=== PATIENT | female | born 1995 | race Two or more races ===

== ENCOUNTER 2021-09-18 17:50 | Emergency (ER) | payer OTHER ==
[2021-09-18 18:24] VITALS: BP 108/63; PULSE 73; RESP 16; TEMP 98.9; BMI 32.5
[2021-09-18] MEDS ORDERED: SODIUM CHLORIDE 1,000 ML IV STA (20:06)
[2021-09-18] MEDS ORDERED: ACETAMINOPHEN 1000 MG/100 ML BAG IVPB ONE (20:06)
[2021-09-18] MEDS ORDERED: ACETAMINOPHEN INJECTION 100 ML IVPB ONE (20:40)
[2021-09-18 21:08] LABS: HCG,QUALITATIVE URINE Positive; URINE APPEARANCE CLEAR; URINE BILIRUBIN NEGATIVE (NEGATIVE); URINE COLOR YELLOW; URINE GLUCOSE (UA) NEGATIVE (NEGATIVE); URINE KETONE NEGATIVE (NEGATIVE); URINE LEUK ESTERASE NEGATIVE (NEGATIVE); URINE NITRITE NEGATIVE (NEGATIVE); URINE PROTEIN NEGATIVE (NEGATIVE); URINE UROBILINOGEN 0.2 mg/dL (0.2-1.0)
[2021-09-18 21:35] LABS: BASO % 0.3 % (0-2.0); HEMATOCRIT 37.8 % (32.4-45.2); HEMOGLOBIN 12.3 GM/dL (10.7-15.3); LYMPH % 35.6 % (8-40); MCH 28.4 pg (25.7-33.7); MCHC 32.5 g/dl (32.0-36.0); MEAN CELL VOLUME 87.5 fl (80-96); MEAN PLT VOLUME 10.1 fl (7.5-11.1); NEUT % 57.1 % (42.8-82.8); PLATELET COUNT 250 10^3/uL (134-434); RBC 4.32 M/mm3 (3.60-5.2); RDW 13.3 % (11.6-15.6); WHITE BLOOD COUNT 10.9 K/mm3 (4.0-10.0)
[2021-09-18 21:55] LABS: ALBUMIN 3.7 g/dl (3.4-5.0); CALCIUM 9.4 mg/dL (8.5-10.1)
[2021-09-18 22:00] LABS: BILIRUBIN,TOTAL 0.5 mg/dL (0.2-1); CREATININE 0.7 mg/dL (0.55-1.3); TOT PROT 7.8 g/dl (6.4-8.2)
== END 2021-09-18 23:25 | disposition home or self-care (01) ==
LOC: JER 17:50
PROC: 3E033GC Introduction of Other Therapeutic Substance into Peripheral Vein, Percutaneous Approach (ICD-10-PCS; principal; 2021-09-18)
DX: R10.84 Generalized abdominal pain (principal)
CPT/HCPCS: 36415; 76817-TC; 80053; 81003; 84702; 84703; 85025; 86850; 86900; 86901; 87086; 99284-25

== ENCOUNTER 2022-05-10 07:15 | Inpatient (IN) | payer OTHER ==
[2022-05-10] MEDS: ELECTROLYTE-148 SOLN 1,000 ML IV SCH ×2 (09:00→12:30)
[2022-05-10 09:58] VITALS: BMI 39.9
[2022-05-10 11:05] LABS: BASO % 0.3 % (0-2.0); EOS % 0.3 % (0-4.5); HEMATOCRIT 35.4 % (32.4-45.2); HEMOGLOBIN 11.9 GM/dL (10.7-15.3); LYMPH % 14.1 % (8-40); MCH 29.4 pg (25.7-33.7); MCHC 33.6 g/dl (32.0-36.0); MEAN CELL VOLUME 87.5 fl (80-96); MEAN PLT VOLUME 10.2 fl (7.5-11.1); MONO % 4.9 % (3.8-10.2); NEUT % 80.4 % (42.8-82.8); PLATELET COUNT 203 10^3/uL (134-434); RBC 4.05 M/mm3 (3.60-5.2); RDW 14.1 % (11.6-15.6); WHITE BLOOD COUNT 12.6 K/mm3 (4.0-10.0)
[2022-05-10 11:26] LABS: CALCIUM 8.9 mg/dL (8.5-10.1)
[2022-05-10 11:27] LABS: BLOOD UREA NITROGEN 7.4 mg/dL (7-18)
[2022-05-10 11:30] LABS: CREATININE 0.5 mg/dL (0.55-1.3)
[2022-05-10 11:31] LABS: INR 0.95 (0.83-1.09)
[2022-05-10 11:33] LABS: ACTIVATED PTT 28.9 SECONDS (25.2-36.5)
[2022-05-10] MEDS ORDERED: FENTANYL/BUPIVACAINE/NS/PF - PCEA - 50 ML DISP.SYRIN EP ONE (11:43)
[2022-05-10] MEDS ORDERED: NALOXONE HCL 0.4 MG/ML VIAL IVPUSH PRN (11:46)
[2022-05-10] MEDS ORDERED: FENTANYL CITRATE/PF 50 MCG/ML VIAL ONE ×4 (11:51→16:57)
[2022-05-10] MEDS ORDERED: FENTANYL/BUPIVACAINE/NS/PF - PCEA - 50 ML DISP.SYRIN EP SCH (12:00)
[2022-05-10] MEDS ORDERED: OXYTOCIN 20 UNITS in 0.9% NS 20 UNIT/1,000 ML INFUS.BAG IV ONE ×2 (16:15→19:26)
[2022-05-10] MEDS ORDERED: ceFAZolin SODIUM 1 GM VIAL ONE (16:23)
[2022-05-10] MEDS ORDERED: KETAMINE HCL 500 MG/10 ML VIAL ONE (16:28)
[2022-05-10] MEDS ORDERED: SODIUM CHLORIDE 0.9% P/F 10 ML VIAL IJ ONE (16:30)
[2022-05-10] MEDS ORDERED: SUCCINYLCHOLINE CHLORIDE 200 MG/10 ML SYRINGE ONE (16:34)
[2022-05-10] MEDS ORDERED: PROPOFOL 20 ML ONE ×2 (16:34→16:35)
[2022-05-10] MEDS ORDERED: MIDAZOLAM HCL 2 MG/2 ML SINGLE DOSE VIAL ONE (16:39)
[2022-05-10] MEDS ORDERED: DEXAMETHASONE SOD PHOSPHATE 4 MG/1 ML VIAL ONE (16:51)
[2022-05-10] MEDS ORDERED: ONDANSETRON 4 MG/2 ML VIAL ONE (16:51)
[2022-05-10] MEDS ORDERED: KETOROLAC TROMETHAMINE 30 MG/1 ML VIAL ONE (16:51)
[2022-05-10] MEDS ORDERED: IBUPROFEN 800 MG/8 ML IJ IVPB PRN (17:01)
[2022-05-10] MEDS ORDERED: ACETAMINOPHEN 325 MG TABLET (FP) PO PRN (17:01)
[2022-05-10] MEDS ORDERED: METHYLERGONOVINE MALEATE 0.2 MG/1 ML AMP IM PRN (17:01)
[2022-05-10] MEDS ORDERED: PROMETHAZINE HCL 25 MG/1 ML VIAL IVPB PRN (17:02)
[2022-05-10] MEDS ORDERED: ONDANSETRON 4 MG/2 ML VIAL IVPUSH PRN (17:02)
[2022-05-10] MEDS ORDERED: ACETAMINOPHEN 1000 MG/100 ML BAG IVPB PRN (17:05)
[2022-05-10 17:10] LABS: CORD BASE EXCESS -4.4 mmol/L (0-2); CORD HCO3 21.4 mmHg (20-29); CORD PCO2 41.7 mmHg (30-78); CORD pH 7.328 (7.14-7.44)
[2022-05-10 17:15] LABS: CORD HCO3 25.2 mmHg (20-29); CORD PCO2 77.2 mmHg (30-78); CORD pH 7.132 (7.14-7.44)
[2022-05-10] MEDS ORDERED: LACTATED RINGERS SOLUTION 1,000 ML IV SCH (17:15)
[2022-05-10] MEDS: HYDROmorphone *PCA* 10MG/50ML DISP.SYRIN PCA SCH (17:45)
[2022-05-10] MEDS ORDERED: ACETAMINOPHEN INJECTION 100 ML IVPB ONE (18:32)
[2022-05-10] MEDS: OXYTOCIN 20 UNITS in 0.9% NS 20 UNIT/1,000 ML INFUS.BAG IV SCH (19:30)
[2022-05-10] MEDS: FERROUS SO4 325 MG TABLET (FP) PO SCH (22:11)
[2022-05-11] MEDS: OXYTOCIN 20 UNITS in 0.9% NS 20 UNIT/1,000 ML INFUS.BAG IV SCH (03:22)
[2022-05-11] MEDS ORDERED: oxyCODONE HCL 5 MG TABLET PO PRN (05:01)
[2022-05-11 06:41] LABS: BASO % 0.2 % (0-2.0); EOS % 0.1 % (0-4.5); HEMATOCRIT 30.9 % (32.4-45.2); HEMOGLOBIN 10.5 GM/dL (10.7-15.3); LYMPH % 19.6 % (8-40); MCHC 33.9 g/dl (32.0-36.0); MEAN CELL VOLUME 88.4 fl (80-96); MEAN PLT VOLUME 10.9 fl (7.5-11.1); MONO % 7.8 % (3.8-10.2); NEUT % 72.3 % (42.8-82.8); PLATELET COUNT 177 10^3/uL (134-434); RBC 3.49 M/mm3 (3.60-5.2); RDW 14.1 % (11.6-15.6); WHITE BLOOD COUNT 12.7 K/mm3 (4.0-10.0)
[2022-05-11] MEDS ORDERED: FLU VACC QS2022-23(6MOS UP)/PF 60 MCG/0.5 ML SYRINGE IM ONE (10:00)
[2022-05-11] MEDS ORDERED: DIPHTH,PERTUSS(ACELL),TET 0.5 ML DISP.SYRIN IM ONE (10:00)
[2022-05-11] MEDS: FERROUS SO4 325 MG TABLET (FP) PO SCH ×2 (11:18→21:13)
[2022-05-11] MEDS: PRENATAL VITAMINS W/ FOLIC ACID TABLET (FP) PO SCH (11:18)
[2022-05-11 13:01] LABS: POC NITRAZINE NEG
[2022-05-11] MEDS ORDERED: BISACODYL 10 MG SUPP.RECT RC PRN (17:01)
[2022-05-11] MEDS: IBUPROFEN 600 MG TABLET (FP) PO PRN (20:50)
[2022-05-11] MEDS: SIMETHICONE 80 MG TAB.CHEW (FP) PO PRN (20:50)
[2022-05-12] MEDS: HYDROmorphone *PCA* 10MG/50ML DISP.SYRIN PCA SCH (09:44)
[2022-05-12] MEDS: SIMETHICONE 80 MG TAB.CHEW (FP) PO PRN (09:50)
[2022-05-12] MEDS: IBUPROFEN 600 MG TABLET (FP) PO PRN (09:50)
[2022-05-12] MEDS: PRENATAL VITAMINS W/ FOLIC ACID TABLET (FP) PO SCH (09:50)
[2022-05-12] MEDS: FERROUS SO4 325 MG TABLET (FP) PO SCH ×2 (11:00→21:06)
[2022-05-13 09:08] LABS: BASO % 0.3 % (0-2.0); EOS % 1.4 % (0-4.5); HEMATOCRIT 30.2 % (32.4-45.2); HEMOGLOBIN 10.4 GM/dL (10.7-15.3); LYMPH % 15.9 % (8-40); MCH 30.6 pg (25.7-33.7); MCHC 34.5 g/dl (32.0-36.0); MEAN CELL VOLUME 88.7 fl (80-96); MONO % 6.1 % (3.8-10.2); NEUT % 76.3 % (42.8-82.8); PLATELET COUNT 206 10^3/uL (134-434); RDW 13.5 % (11.6-15.6); WHITE BLOOD COUNT 9.2 K/mm3 (4.0-10.0)
[2022-05-13] MEDS: FERROUS SO4 325 MG TABLET (FP) PO SCH (11:08)
[2022-05-13] MEDS: PRENATAL VITAMINS W/ FOLIC ACID TABLET (FP) PO SCH (11:08)
[2022-05-13 11:58] VITALS: BP 120/75; PULSE 102; RESP 17; TEMP 98.6
== END 2022-05-13 13:10 | disposition home or self-care (01) | DRG 540 ==
LOC: JDEL 07:15 → JLDR 08:30 → J3W 19:32
PROVIDERS: ADMIT Obstetrics & Gynecology; ATTEND Obstetrics & Gynecology
PROC: 10D00Z1 Extraction of Products of Conception, Low, Open Approach (ICD-10-PCS; principal; 2022-05-10)
DX: O62.1 Secondary uterine inertia (principal); O99.213 Obesity complicating pregnancy, third trimester; Z3A.40 40 weeks gestation of pregnancy; Z37.0 Single live birth
CPT/HCPCS: 36415; 36600; 59025; 80048; 82803; 83986-QW; 85025; 85610; 85730; 86780; 86850; 86900; 86901; 88307-TC; 90715; 94010; C9803-CS; G0008; Q2036; U0003; U0005